=== PATIENT | male | born 1955 | race African-American/Black ===

== ENCOUNTER 2021-04-26 00:23 | Emergency (ER) | payer MEDICARE, MEDICAID ==
[~2021-04-26] VITALS: Ht 167.6 cm; Wt 68.0 kg
[2021-04-26] MEDS ORDERED: ACETAMINOPHEN 325MG TABLET PO ONE (01:15)
[2021-04-26] MEDS ORDERED: CIPHCO LEFT EAR (01:25)
[2021-04-26] MEDS ORDERED: TOPUD MT (01:25)
[2021-04-26] MEDS ORDERED: HYDROCODONE/ACETAMINOPHEN 5/325MG TABLET PO ONE (06:15)
[2021-04-26 08:56] VITALS: BP 149/99
== END 2021-04-26 09:01 | disposition home or self-care (01) ==
LOC: ER 00:23
DX: H60.92 Unspecified otitis externa, left ear (principal); I10 Essential (primary) hypertension; F20.9 Schizophrenia, unspecified; Z89.611 Acquired absence of right leg above knee
CPT/HCPCS: 99283

== ENCOUNTER 2023-06-28 22:27 | Emergency (ER) | payer MEDICARE, MEDICAID ==
[~2023-06-28] VITALS: Ht 182.9 cm; Wt 90.0 kg
[~2023-06-28 22:27] MED LIST: CIPHCO LEFT EAR; TOPUD MT
[2023-06-28 22:29] VITALS: O2SAT 99
[2023-06-28] MEDS: IBUPROFEN 600MG TABLET PO STA (23:45)
[2023-06-29] MEDS ORDERED: IBUP-2029 MT (00:30)
[2023-06-29 00:55] VITALS: BP 142/85; PULSE 100; RESP 14; TEMP 98.1
== END 2023-06-29 01:05 | disposition home or self-care (01) ==
LOC: ER 22:27
DX: M25.561 Pain in right knee (principal); E11.9 Type 2 diabetes mellitus without complications; I10 Essential (primary) hypertension; F20.9 Schizophrenia, unspecified; Z98.890 Other specified postprocedural states
CPT/HCPCS: 73562; 99283